=== PATIENT | male | born 1970 | race Caucasian/White ===

== ENCOUNTER 2017-04-05 09:13 | Inpatient (IN) | payer OTHER ==
[~2017-04-05] VITALS: Ht 188 cm; Wt 122.8 kg
--- NOTE | ~2017-04-05 | HP ---
Unit #: [id number] #: [id number] Patient: ELDA MATHEW [id number] [place], [place] [address] [id number] MR#: [id number] NAME: ELDA MTAHEW ROOM: Age: 46 Sex: M Admission Date: 04/05/2017 : 1970 Attending Physician: Onesimo Diaz D.O. HISTORY AND PHYSICAL CHIEF COMPLAINT Syncope. HISTORY OF PRESENT ILLNESS The patient is a 46-year-old male with a past medical history of DVT, chronic anticoagulation, diabetes, hypertension, and GERD, who presented to the emergency department for evaluation of the above. The patient states that he has had sinus congestion, pressure, and pain. He was seen by an urgent care facility yesterday and diagnosed with "double ear infections," as well as a sinus infection, and started on Augmentin, Singulair, and Flonase which he has been taking as prescribed. He states that he actually felt worse. He developed fever and chills. This morning he states that he felt somewhat lightheaded when he got out of bed. He then passed out. He states that he had associated diaphoresis. Upon EMS arrival, blood pressure was in the 80s systolic. He was brought to the emergency department for further evaluation. In the emergency department, temperature was 99.3, pulse 102, and blood pressure 134/76. He was given a total of 5.3 liters of normal saline, as well as gram of Rocephin. Laboratory notable for lactic acid of 2.7. He is being admitted to [facility] for evaluation and further treatment. PAST MEDICAL HISTORY 1. Admission to [facility] January 28, 2016, for sepsis secondary to viral gastroenteritis. He was also diagnosed with diabetes during that admission with a hemoglobin A1c of 7.2. 2. Diabetes. 3. Right lower extremity DVT, maintained on Eliquis. 4. GERD. PAST SURGICAL HISTORY Right ring finger. SOCIAL HISTORY Patient lives with his . He quit smoking 20 years ago. He reports occasional alcohol use. 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 FAMILY HISTORY Notable for his brother having DVT. ALLERGIES IV dye. Unit #: [id number] #: [id number] Patient: ELDA MATHEW HOME MEDICATIONS 1. Augmentin 875 twice daily. 2. Singulair 10 mg daily. 3. Astepro 2 puffs twice daily. 4. Flonase inhaled twice daily. 5. Lisinopril 5 mg daily. 6. Eliquis 5 mg twice daily. 7. Metformin 500 mg daily. 8. Zyrtec 10 mg daily. REVIEW OF SYSTEMS A complete review of systems is negative except as indicated in the HPI. The patient states that he has never had a stress test. He states that his blood sugars are typically in the 130s to 170. PHYSICAL EXAMINATION VITAL SIGNS: Temperature is 99.3, pulse 102, respirations 16, blood pressure 134/76, oxygen saturation 97% on room air. GENERAL: The patient is a male who is awake and alert, in no acute distress. HEENT: Head is atraumatic. Mucous membranes are moist. NECK: Supple. Trachea is midline. CARDIOVASCULAR: Regular rate and rhythm. LUNGS: Clear to auscultation bilaterally with no increased work of breathing. ABDOMEN: Soft and nontender with bowel sounds present in all four quadrants. EXTREMITIES: Nontender with no pedal edema. NEUROLOGIC: The patient is awake and alert. He follows commands. PSYCHIATRIC: Mood and affect are normal. Patient is cooperative. SKIN: Skin of examined areas is warm and dry. DIAGNOSTIC STUDIES LABORATORY: Complete blood count notable for hemoglobin of 17.1 and platelets 131,000. Troponin is less than 0.05. INR is 1.3. Magnesium 1.8. Comprehensive metabolic panel notable for a sodium of 134 that corrects when glucose of 230 is accounted for, AST and ALT are 51 and 51, respectively, and total bilirubin is 3.1 with 2.5 indirect. Lactic acid is 2.7. Urine tox screen is negative. IMAGING: Chest x-ray shows nothing acute. CT of the head shows nothing acute. CARDIOLOGY: EKG shows sinus tachycardia with a rate of 110 beats per minute. ASSESSMENT The patient is a 46-year-old male with: 1. Lactic acidosis concerning for possible sepsis. The patient's blood pressure was reportedly in the 80s systolic by EMS. Lactic acidosis could be secondary to hypoperfusion. I do not see any obvious source of infection. Urinalysis is pending. The patient is also on metformin which could be contributing. 2. Syncope. 3. History of deep venous thrombosis. 4. Chronic anticoagulation with Eliquis. 5. Diabetes. Unit #: [id number] #: [id number] Patient: ELDA MATHEW 6. Hypertension. 7. Gastroesophageal reflux disease. PLAN 1. Admit to intermediate level. 2. Sepsis protocol. 3. Follow up urinalysis. 4. Rocephin pending results of urine culture. 5. Normal saline at 100 mL/hour. 6. Monitor blood pressure closely. 7. Blood cultures x2. 8. Sputum culture and sensitivity. 9. Serial cardiac enzymes. 10. A 2D echo. 11. Orthostatics every shift. 12. Fall precautions. 13. Hemoglobin A1c. 14. Low-dose sliding scale insulin with Accu-Cheks. 15. Repeat labs in the morning. 16. Additional workup and consultants based on above. 1. Dictated by Nayeli Espinosa M.D. AW/reagan TD: 04/05/2017 15:45 JOB #: [id number] HISTORY AND PHYSICAL Page 1 of 1 X Nayeli Espinosa MD X HISTORY AND PHYSICAL
--- NOTE | ~2017-04-05 | DS ---
Unit #: [id number] #: [id number] Patient: ELDA PATEL [id number] [address] [address] [id number] I MR#: [id number] NAME: ELDA PATEL ROOM: 558 Age: 46 Sex: M Admission Date: 04/05/2017 : 1970 Discharge Date: 04/06/2017 Attending Physician: Marci Butt M.D. Primary Care Physician: No Primary Care Physician DISCHARGE SUMMARY PRINCIPAL DIAGNOSES 1. Severe sepsis secondary to right otitis media. 2. Frontal and maxillary sinusitis. 3. Syncope secondary to a combination of dehydration and vasovagal etiology. 4. Thrombocytopenia. Discharge platelet count of 112,000. 5. Transaminitis. 6. Diabetes mellitus type 2, non-insulin requiring and controlled with hemoglobin A1C of 6.9. 7. History of hypertension. 8. Severe seasonal allergies. 9. History of right lower extremity deep vein thrombosis, maintained on Eliquis. 10. Gastroesophageal reflux disease. 11. Obesity. CONSULTANTS Dr. Menendez, cardiology. PROCEDURES CARDIOVASCULAR: Two-dimensional echocardiogram on April 05, 2017 with ejection fraction of 55 to 60%. Mild mitral regurgitation noted. Mild aortic stenosis and mild aortic regurgitation noted. Mild tricuspid regurgitation. Right ventricular systolic pressure 38 mmHg. IMAGING: CT of the head without contrast on April 05, 2017, which was normal. CLINICAL HISTORY AND HOSPITAL COURSE Mr. Patel is a nice 46-year-old male who presented to the emergency department with an episode of syncope and after having fever at home. Please refer to H and P for further details. Blood pressure, per EMS records, was in the mid 80s upon presentation. Patient was given aggressive fluid hydration in the emergency department and subsequently placed in observation for evaluation. Patient did have fever x2 following admission. He also had an elevated lactic acid level, which I suspect is, honestly, secondary to a combination of infection and metformin-induced lactic acidosis. With IV hydration, lactic acid returned to normal. Patient's only obvious source of infection is a mild right otitis media with associated frontal and maxillary sinusitis. All other infectious workup is negative. Patient has been maintained on Rocephin here and has had no evidence of leukocytosis and has been afebrile for greater than 12 hours now. I am going to monitor temperature over the next 8 hours or so, and if no further fever, I think he can be safely discharged home with Unit #: [id number] #: [id number] Patient: ELDA PATEL some adjustment in antibiotics. I will note blood pressure has normalized following fluid resuscitation. Will hold lisinopril for a day and can reinitiate at home. I suspect his dehydration was secondary to excessive fever at home with subsequent dehydration. DISCHARGE CONDITION Stable. DISCHARGE STATUS Discharge to home. DISCHARGE MEDICATIONS 1. Flonase nasal spray 0.05%, 2 sprays twice daily. 2. Eliquis 5 mg b.i.d. 3. Metformin 500 mg daily. 4. Zyrtec 10 mg daily. 5. Astelin 2 puffs per nostril b.i.d. 6. Lisinopril 5 mg p.o. daily to be reinitiated on April 07, 2017. 7. Singulair 10 mg daily. 8. Levaquin 500 mg p.o. daily for another 8 days; dose will be initiated on April 07, 2017. DISCHARGE INSTRUCTIONS Patient was instructed to follow a heart healthy, constant carb diet. He will continue Accu-Cheks as he was doing at home previously. He can increase his activity as tolerated. FOLLOW-UP Patient will follow up with his primary care provider in 2 weeks. Dictated by... Marci Butt M.D. ACE/steve TD: 04/07/2017 08:27 JOB #: [id number] DISCHARGE SUMMARY Page 1 of 1 X Marci Butt MD X DISCHARGE SUMMARY
--- NOTE | ~2017-04-05 | EKG ---
PATIENT: ELDA MATHEW UNIT #: [id number] Ventricular Rate: 110 BPM Atrial Rate: 110 BPM P-R Interval: 194 ms QRS Duration: 92 ms Q-T Interval: 316 ms QTC Calculation(Bezet): 427 ms P [place]: 21 degrees Calculated R [place]: 3 degrees Calculated T [place]: 31 degrees Diagnosis Line: Sinus tachycardia Diagnosis Line: Otherwise normal ECG Diagnosis Line: When compared with ECG of 27-JAN-2016 23:57, Diagnosis Line: No significant change was found Diagnosis Line: Confirmed by BRONSON ALMAGUER MD ([id number]) on Diagnosis Line: 04/06/2017 12:33:03 PM INTERPRETING MD: ROSINA WALKER
--- NOTE | ~2017-04-05 | CR63 ---
[facility] A Service of [facility] & [facility] RADIOLOGY TEXT RESULTS PATIENT: ELDA MATHEW LOCATION: [facility] 55-01 : [birth year] UNIT #: [id number] AGE: [address]: Marci Butt MD SEX: M ORDER DR: [id number] [facility] [address] [place], [place] [address] [id number] I MR#: [id number] Acc #: [id number] NAME: ELDA MATHEW : 1970 SEX: M STUDY DATE/TIME: 04/06/2017 21:49 UNIT: [facility] ROOM: [facility] STUDY DESCRIPTION: CR Chest 2 View Attending Physician: Marci Butt M.D. Ordering Physician: Marci Butt M.D. Primary Care Physician: No Primary Care Physician MEDICAL IMAGING REPORT This report is preliminary unless electronic signature is present EXAM Chest, PA and lateral, 04/06/2017. HISTORY Shortness of breath, chest congestion and cough beginning 1 day ago. Benign essential hypertension, syncope. FINDINGS PA and lateral examination of the chest upright shows a good expansion of the parenchyma with a normal distribution of the pulmonary vascularity. There is no indication of congestion, effusion, infiltrate, tumor, or nodular density. The pleural reflections and diaphragmatic contours are normal. The cardiac silhouette and mediastinal anatomy is within normal limits. IMPRESSION Normal chest. Dictated by... Jordin Patel M.D. THIS IS AN ELECTRONICALLY VERIFIED REPORT Jordin Patel M.D. at 04/07/2017 10:40 AM PAUL/carmine TD: 04/07/2017 07:57 JOB #: [id number] MEDICAL IMAGING REPORT Page 1 of 1 COPY
--- NOTE | ~2017-04-05 | CO ---
Unit #: [id number] #: [id number] Patient: ELDA MATHEW [id number] [place], [place] [address] [id number] I MR#: [id number] NAME: ELDA MATHEW ROOM: 558 Age: 46 Sex: M Admission Date: 04/05/2017 : 1970 Attending Physician: Marci Butt M.D. Primary Care Physician: Primary Care Physician No Consultation Date: 04/05/2017 CONSULTATION REPORT REASON FOR CONSULTATION Abnormal 2D echocardiogram and syncope. HISTORY OF PRESENT ILLNESS This is a 46-year-old white male, new to our group with a past medical history of hypertension; diabetes mellitus type 2, on oral medications; GERD; obesity; and right lower extremity DVT, that were diagnosed in 01/2016. The patient was on Xarelto, but this was switched to Eliquis due to cost. He has a history of reformed tobacco abuse. There is no reported family history of heart disease. He denies previous stress test or cardiac catheterizations. 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 He denies syncopal episodes in the past. He presented to the emergency department after sustaining a syncopal episode. He states that yesterday he went to the clinic with complaints of sinus congestion and ear pain. He was given antibiotic and some allergy medication. He went home and developed a fever of 102.5. He took some Tylenol and he sweated all night, that broke his fever. Today, he woke up and felt better. He was sitting on the side of the bed for about 20 minutes, when he got sweaty and felt the need to go to the bathroom. He went to the bathroom to have a bowel movement. He was dizzy and sweaty. His subsequently found him on the floor. He had lost consciousness and busted his lip. He had some nausea, but no vomiting. He denies shortness of breath or chest pain. He has had some pain in his right leg, which is chronic since he had the extensive DVT last year. In the emergency department, his white blood cell count was normal at 6.8. His temperature was 99.0. Electrolytes are normal. His glucose was elevated at 230. There was a left shift with high neutrophil count. Lactic acid was elevated at 2.7, followed by 1.6. Initial cardiac enzymes were negative. EKG revealed sinus tachycardia with no acute findings. Urine toxicology was negative. A 2D echocardiogram was completed at the bedside and revealed a left ventricular ejection fraction of 55% to 60% with mild aortic stenosis and mild aortic regurgitation. RVSP was mildly elevated at 38 mmHg. Cardiology was consulted for abnormal 2D echocardiogram and syncope. PAST MEDICAL HISTORY 1. Hypertension. 2. Diabetes mellitus type 2, on oral medications. 3. GERD. 4. Obesity. 5. Right lower extremity DVT in 01/2016, on chronic anticoagulation with Eliquis. Unit #: [id number] #: [id number] Patient: ELDA MATHEW 6. Reformed tobacco abuse. 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 HOME MEDICATIONS Augmentin 875 mg p.o. b.i.d. x10 days for sinus infection; Singulair 10 mg p.o. daily; Astepro two puffs b.i.d., that should be nasal spray; Flonase 2 nasal spray b.i.d.; lisinopril 5 mg p.o. daily; Eliquis 5 mg p.o. b.i.d.; metformin 500 mg p.o. daily; Zyrtec 10 mg p.o. daily. ALLERGIES IV dye. SOCIAL HISTORY The patient lives in a private residence. He is a reformed smoker and quit approximately 20 years ago. He had a history of occasional alcohol use with a couple of beers per week, but no longer drinks. He denies illicit drug use. FAMILY HISTORY His brother had a blood clot. There was no reported heart disease. REVIEW OF SYSTEMS Ten-point review of systems was negative except for details above in HPI. PHYSICAL EXAMINATION VITAL SIGNS: Temperature 99, pulse 95, blood pressure 123/69. CONSTITUTIONAL: This is a 46-year-old white male, in no acute distress. SKIN: Warm and dry. NECK: Supple. No jugular vein distention. No hepatojugular reflux. Normal carotid upstrokes. No carotid bruits auscultated. HEART: S1 and S2. Slightly tachycardic. No murmurs, rubs, or gallops. LUNGS: Bilateral breath sounds have good air entry throughout all lung marin. Respirations even and nonlabored. No rales, rhonchi, or wheezes. ABDOMEN: Soft, nontender, and nondistended. Positive bowel sounds auscultated x4 quadrants. No ascites noted. EXTREMITIES: Bilateral lower extremities have no pretibial pitting edema. DP and PT pulses are 2+. Capillary refill is less than 2 seconds. DIAGNOSTIC STUDIES LABORATORY RESULTS: White blood cell count 6.8, hemoglobin 17.1, hematocrit 49.1, platelets 131. Sodium 134, potassium 4.0, chloride 102, CO2 of 23, BUN 10, creatinine 1.2, glucose 230, magnesium 1.8. Positive left shift. Troponin 0.05 and 0.05. AST 51, ALT 51, alkaline phos 69, lactic acid 2.7 and 1.6. INR 1.3. Urine toxicology negative. IMAGING STUDIES: CT of the head pending. CARDIOVASCULAR STUDIES: EKG reveals sinus tachycardia with no acute ST or T-wave changes. IMPRESSION 1. Syncope, questionably vasovagal. 2. Upper respiratory infection. 3. Mildly abnormal 2D echocardiogram with mild aortic stenosis and aortic regurgitation. 4. Hypertension. Unit #: [id number] #: [id number] Patient: ELDA MATHEW 5. Diabetes mellitus, type 2. 6. Gastroesophageal reflux disease. 7. Obesity. 8. Sinus tachycardia. 9. History of right lower extremity deep venous thrombosis in 01/2016, on anticoagulation with Eliquis. 10. Reformed tobacco abuse. PLAN 1. The patient was in the hospital after syncopal episode. He was admitted for further evaluation. Cardiology was consulted. 2. There are no reports of chest pain or evidence of congestive heart failure. 3. Telemetry reveals sinus tachycardia. IV fluids have been ordered. 4. We will continue telemetry monitoring. The patient's lisinopril has been stopped. He may need a beta-ilia for further heart rate control. 5. TSH and fasting lipid profile will be obtained. 6. Cardiac enzymes and EKG will be trended. 7. The patient does not need any further workup for valvular heart disease. Dictated by... Paula Llanos APRN TR/thea TD: 04/06/2017 07:46 JOB #: [id number] CONSULTATION REPORT Page 1 of 1 X X CONSULTATION REPORT
--- NOTE | ~2017-04-05 | CT71 ---
[facility] A Service of [facility] / [facility] RADIOLOGY TEXT RESULTS PATIENT: ELDA MATHEW LOCATION: [facility] [address] : [birth year] UNIT #: [id number] AGE: [address]: Nayeli Espinosa MD SEX: M ORDER DR: [id number] [facility] [address] [place], [place] [address] [id number] MR#: [id number] Acc #: [id number] NAME: ELDA MATHEW : 1970 SEX: M STUDY DATE/TIME: 04/05/2017 10:07 UNIT: [facility] ROOM: STUDY DESCRIPTION: CT Head Wo Contrast Attending Physician: Onesimo Diaz D.O. Ordering Physician: Onesimo Diaz D.O. Primary Care Physician: Primary Care Physician No MEDICAL IMAGING REPORT This report is preliminary unless electronic signature is present EXAM Head CT 04/05 INDICATIONS Syncopal episode today. COMPARISON None TECHNIQUE Axial noncontrast images were obtained from the skull base to the vertex. This CT exam was performed with one or more of the following radiation dose reduction techniques: automatic exposure control, adjustment of mA and/or kV according to patient size, and iterative reconstruction. FINDINGS Ventricular size and configuration are normal. There is no evidence of acute infarct or hemorrhage. There are no extraaxial fluid collections. No mass lesion or mass effect is seen. There are no skull fractures. IMPRESSION Normal noncontrast head CT. Dictated by... Anjel Porras Jr., M.D. THIS IS AN ELECTRONICALLY VERIFIED REPORT Anjel Porras Jr., M.D. at 04/06/2017 6:36 AM RLK/to TD: 04/05/2017 18:38 JOB #: [id number] [facility] A Service of [facility] RADIOLOGY TEXT RESULTS PATIENT: ELDA MATHEW LOCATION: [facility] [address] : [birth year] UNIT #: [id number] AGE: [address]: Nayeli Espinosa MD SEX: M ORDER DR: MEDICAL IMAGING REPORT Page 1 of 1 COPY
--- NOTE | ~2017-04-05 | CR72 ---
[facility] A Service of [facility] RADIOLOGY TEXT RESULTS PATIENT: ELDA MATHEW LOCATION: [address] [address] : [birth year] UNIT #: [id number] AGE: [address]: Marci Butt MD SEX: M ORDER DR: [id number] [place], [place] [address] [id number] E MR#: [id number] Acc #: [id number] NAME: ELDA MATHEW : 1970 SEX: M STUDY DATE/TIME: 04/05/2017 9:43 UNIT: ANDRE ROOM: STUDY DESCRIPTION: CR Chest Single View Portable Attending Physician: Onesimo Diaz D.O. Ordering Physician: Onesimo Diaz D.O. Primary Care Physician: No Primary Care Physician MEDICAL IMAGING REPORT This report is preliminary unless electronic signature is present EXAM AP portable chest DATE 04/05/2017 HISTORY Syncopal episode today. Sinus congestion. COMPARISON AP portable chest 01/27/2016. FINDINGS Benign calcified granuloma is demonstrated in the right apex. No acute airspace disease is seen. Normal heart size. No pleural effusion or pneumothorax is evident. Mild endplate spurring in the thoracic spine. Densely calcified lymph node is seen within the right paratracheal region. IMPRESSION 1. No acute cardiopulmonary findings. 2. Benign calcified granulomatous changes. Dictated by... Janis Velazquez M.D. THIS IS AN ELECTRONICALLY VERIFIED REPORT Janis Velazquez M.D. at 04/06/2017 10:49 AM LLH/df TD: 04/05/2017 14:31 JOB #: [id number] [facility] A Service of [facility] RADIOLOGY TEXT RESULTS PATIENT: ELDA MATHEW LOCATION: [facility] 55 : [birth year] UNIT #: [id number] AGE: [address]: Marci Butt MD SEX: M ORDER DR: MEDICAL IMAGING REPORT Page 1 of 1 COPY
--- NOTE | ~2017-04-05 | DS ---
Unit #: [id number] #: [id number] Patient: ELDA MATHEW [id number] [address] [address] [id number] I MR#: [id number] NAME: ELDA MATHEW ROOM: [facility] Age: 46 Sex: M Admission Date: 04/05/2017 : 1970 Discharge Date: 04/07/2017 Attending Physician: Marci Butt M.D. Primary Care Physician: No Primary Care Physician DISCHARGE SUMMARY ADDENDUM HOSPITAL COURSE Patient remained in the hospital due to recurrent fever yesterday afternoon. Repeat chest x-ray, however, is unremarkable. This morning, patient feels significantly better and temperature has come down. Maximum temperature is 100.2. His white blood cell decreased a bit to 3.3 but otherwise blood work was unremarkable. My clinical suspicious is that perhaps this is a viral-induced illness given persistent fever despite antibiotics and his associated leukopenia. Patient, however, feels quit a bit better and will be discharged home today. I will note that patient is tachycardia due to his recurrent fevers and there has been a change in his discharge medications. Lisinopril has been discontinued and he has been placed on metoprolol 12.5 mg b.i.d. He will follow up with Dr. Menendez as instructed on the chart. Dictated by... Marci Butt M.D. ACE/palak TD: 04/08/2017 12:20 JOB #: [id number] DISCHARGE SUMMARY Page 1 of 1 X Marci Butt MD X DISCHARGE SUMMARY
[~2017-04-05 09:13] MED LIST: LISINOPRIL10 MG PO; LOMOTIL WHITE2.5 M1 PO; PREVACID PO; XARELTO15 MG PO
[2017-04-05 09:51] LABS: BASOPHIL% 0.6 % (0-2.5); HEMATOCRIT 49.1 % (38.0-50.0); HEMOGLOBIN 17.1 gm/dL (13.0-16.0); LYMPHOCYTE# 0.4 X10e3 (1.0-3.5); LYMPHOCYTE% 5.6 % (17.0-45.0); MEAN CELL VOLUME 82.7 FL (83-96); MEAN CORPUSCULAR HEMOGLOBIN 28.9 PG (28-34); MEAN CORPUSCULAR HGB CONC 34.9 g/dL (30-36); MEAN PLATELET VOLUME 8.6 FL (6.5-11.5); MONOCYTE# 0.4 X10e3 (0-1.0); MONOCYTE% 5.7 % (3.0-12.0); NEUTROPHIL% 88.1 % (40-75); PLATELET COUNT 131 X10e3 (140-420); RED BLOOD COUNT 5.94 X10e (3.90-5.60); RED CELL DISTRIBUTION WIDTH 13.8 % (11.0-15.5); WHITE BLOOD COUNT 6.8 X10e3 (4.0-10.5)
[2017-04-05 09:58] LABS: POC - CKMB <1.0 ng/mL (0.0-7.9); POC - TROPONIN <0.05 ng/mL (<=0.05)
[2017-04-05 09:58] LABS: DIFF IND NO
[2017-04-05 10:03] LABS: INR 1.3; PARTIAL THROMBOPLASTIN TIME 31.4 SECONDS (23.5-31.3); PROTHROMBIN TIME (PATIENT) 13.8 SECONDS (10.0-11.7)
[2017-04-05] MEDS ORDERED: SINGULAIR PO (10:05)
[2017-04-05] MEDS ORDERED: AUGMENTIN PO (10:05)
[2017-04-05] MEDS ORDERED: ASTEPRO205.5 MCG/ (10:06)
[2017-04-05] MEDS ORDERED: FLONASE 0.05% N16 G1 INH (10:06)
[2017-04-05] MEDS ORDERED: ELIQUIS5 MG PO (10:07)
[2017-04-05] MEDS ORDERED: LISINOPRIL5 MG PO (10:07)
[2017-04-05] MEDS ORDERED: METFORMIN HCL500 M1 PO (10:09)
[2017-04-05] MEDS ORDERED: ZYRTEC10 M2 PO (10:09)
[2017-04-05 10:16] LABS: ALBUMIN SERUM 4.4 g/dL (3.5-5.0); BILIRUBIN, DIRECT 0.6 mg/dL (0.0-0.2); BILIRUBIN,INDIRECT 2.5 mg/dL (0.0-0.9); BILIRUBIN,TOTAL 3.1 mg/dL (0.2-2.0); BUN/CREATININE RATIO 8.33; CREATININE SERUM 1.2 mg/dL (0.6-1.4); GLOM FILT RATE Estimated 71.1 mL/min (>60)
[2017-04-05 11:48] LABS: URINE SOURCE CLEAN CATCH
[2017-04-05 11:56] LABS: URINE APPEARANCE CLEAR; URINE BILIRUBIN NEG (NEG); URINE BLOOD NEG (NEG); URINE COLOR DK YELLOW; URINE GLUCOSE >1000 MG/DL (NEG); URINE KETONE 1+ (NEG); URINE LEUKOCYTE ESTERASE NEG (NEG); URINE NITRATE NEG (NEG); URINE PH 5.5 (5-8); URINE PROTEIN 1+ (NEG)
[2017-04-05 11:59] LABS: URINE BACTERIA AUWI NEG (NEGATIVE); URINE SQUAMOUS EPITHELIAL CELL NONE SEEN /[HPF]
[2017-04-05 12:14] LABS: POC - CKMB <1.0 ng/mL (0.0-7.9); POC - TROPONIN <0.05 ng/mL (<=0.05)
[2017-04-05 12:16] LABS: AMPHETAMINE NEG (NEG); BARBITURATES NEG (NEG); BENZODIAZEPINES NEG (NEG); COCAINE NEG (NEG); MARIJUANA NEG (NEG); OPIATES NEG (NEG); TRICYCLIC ANTIDEPRESSANTS NEG (NEG); U METHADONE NEG (NEG)
[2017-04-05 12:23] LABS: CULTURE INDICATED? NO; URINE MUCUS PRESENT
[2017-04-05 12:24] LABS: URINE GRANULAR CAST 0-2 /[HPF]
[2017-04-05 16:31] LABS: %MB 1.8 % (0.0-4.0); MB 1.1 ng/ml
[2017-04-05 22:16] LABS: %MB 1.2 % (0.0-4.0)
[2017-04-06 06:44] LABS: BASOPHIL% 0.6 % (0-2.5); LYMPHOCYTE# 0.4 X10e3 (1.0-3.5); LYMPHOCYTE% 10.5 % (17.0-45.0); MEAN CELL VOLUME 81.6 FL (83-96); MEAN CORPUSCULAR HEMOGLOBIN 28.8 PG (28-34); MEAN CORPUSCULAR HGB CONC 35.3 g/dL (30-36); MEAN PLATELET VOLUME 9.2 FL (6.5-11.5); MONOCYTE# 0.3 X10e3 (0-1.0); MONOCYTE% 6.6 % (3.0-12.0); NEUTROPHIL# 3.4 X10e3 (1.5-7.1); NEUTROPHIL% 82.3 % (40-75); PLATELET COUNT 112 X10e3 (140-420); RED BLOOD COUNT 4.91 X10e (3.90-5.60); RED CELL DISTRIBUTION WIDTH 14.1 % (11.0-15.5); WHITE BLOOD COUNT 4.2 X10e3 (4.0-10.5)
[2017-04-06 06:46] LABS: HEMOGLOBIN 14.1 gm/dL (13.0-16.0)
[2017-04-06 06:47] LABS: DIFF IND NO
[2017-04-06 07:23] LABS: ALBUMIN SERUM 3.5 g/dL (3.5-5.0); BILIRUBIN,TOTAL 2.2 mg/dL (0.2-2.0); BUN/CREATININE RATIO 11.11; CALCIUM SERUM 8.4 mg/dL (8.4-10.2); CREATININE SERUM 0.9 mg/dL (0.6-1.4); GLOM FILT RATE Estimated 100.6 mL/min (>60); MAGNESIUM 1.7 mg/dL (1.6-3.0); POTASSIUM 3.7 mmol/L (3.5-5.1); PROTEIN TOTAL SERUM 5.5 g/dL (6.0-8.3)
[2017-04-07 06:12] LABS: HEMATOCRIT 40.8 % (38.0-50.0); HEMOGLOBIN 14.2 gm/dL (13.0-16.0); MEAN CELL VOLUME 81.8 FL (83-96); MEAN CORPUSCULAR HEMOGLOBIN 28.4 PG (28-34); MEAN CORPUSCULAR HGB CONC 34.7 g/dL (30-36); MEAN PLATELET VOLUME 8.9 FL (6.5-11.5); RED BLOOD COUNT 4.99 X10e (3.90-5.60); RED CELL DISTRIBUTION WIDTH 14.3 % (11.0-15.5); WHITE BLOOD COUNT 3.3 X10e3 (4.0-10.5)
[2017-04-07 06:45] LABS: BUN/CREATININE RATIO 12.5; CALCIUM SERUM 8.7 mg/dL (8.4-10.2); CREATININE SERUM 0.8 mg/dL (0.6-1.4); GLOM FILT RATE Estimated 105.7 mL/min (>60); POTASSIUM 4.8 mmol/L (3.5-5.1)
[2017-04-07] MEDS ORDERED: METOPROLOL TAR25 MG PO (16:59)
[2017-04-07] MEDS ORDERED: LEVAQUIN PO (17:01)
== END 2017-04-07 18:11 | disposition home or self-care (01) | DRG 872 ==
LOC: CED 09:13 → C5B 11:10 → CED 11:35 → C5B 11:35
PROVIDERS: Emergency Medicine; Family Medicine; Internal Medicine
PROC: B24BYZZ Ultrasonography of Heart with Aorta using Other Contrast (ICD-10-PCS; principal; 2017-04-05)
DX: A41.9 Sepsis, unspecified organism (principal); E87.2 Acidosis; I08.3 Combined rheumatic disorders of mitral, aortic and tricuspid valves; I10 Essential (primary) hypertension; E11.9 Type 2 diabetes mellitus without complications; J32.0 Chronic maxillary sinusitis; R55 Syncope and collapse; R65.20 Severe sepsis without septic shock; Z86.718 Personal history of other venous thrombosis and embolism; Z79.01 Long term (current) use of anticoagulants; K21.9 Gastro-esophageal reflux disease without esophagitis; Z87.891 Personal history of nicotine dependence; Z91.041 Radiographic dye allergy status; Z79.84 Long term (current) use of oral hypoglycemic drugs; E66.9 Obesity, unspecified; Z89.021 Acquired absence of right finger(s); J06.9 Acute upper respiratory infection, unspecified; R00.0 Tachycardia, unspecified; H66.90 Otitis media, unspecified, unspecified ear; E86.0 Dehydration; J32.1 Chronic frontal sinusitis; R74.0 Nonspecific elevation of levels of transaminase and lactic acid dehydrogenase [LDH]; Z68.32 Body mass index [BMI] 32.0-32.9, adult
CPT/HCPCS: 36415; 70450; 71010; 71020; 80048; 80053; 80061; 80076; 80307; 81003; 82550; 82553; 82947; 83036; 83605; 83735; 84443; 84484; 85025; 85027; 85610; 85730; 87040; 93005; 93306; 96360; 99285; J0696; J1815